=== PATIENT | male | born 1995 | race Caucasian/White ===

== ENCOUNTER 2018-07-19 09:26 | Emergency (ER) | payer OTHER ==
[~2018-07-19] VITALS: Ht 170.2 cm; Wt 68.0 kg
[~2018-07-19 09:26] MED LIST: VISTARIL 25 MG25 M1 PO
[2018-07-19] MEDS ORDERED: NAPROSYN500 MG PO (10:29)
[2018-07-19] MEDS ORDERED: NORFLEX100 MG PO (10:29)
[2018-07-19 10:34] VITALS: BP 113/69
== END 2018-07-19 10:34 | disposition home or self-care (01) ==
LOC: ER 09:26
DX: S29.012A Strain of muscle and tendon of back wall of thorax, initial encounter (principal); F17.210 Nicotine dependence, cigarettes, uncomplicated; X50.0XXA Overexertion from strenuous movement or load, initial encounter; Y93.89 Activity, other specified; Y92.89 Other specified places as the place of occurrence of the external cause; Y99.0 Civilian activity done for income or pay